=== PATIENT | male | born 1990 | race Caucasian/White ===

== ENCOUNTER 2016-09-17 13:14 | Emergency (ER) | payer SELFPAY ==
[~2016-09-17] VITALS: Ht 170.2 cm; Wt 102.0 kg
[2016-09-17 13:27] VITALS: Ht 170.2 cm; Wt 102.0 kg
[2016-09-17] MEDS ORDERED: LIDOCAINE 2% (MDV) 20 ML INJ INJ ONE (15:30)
--- NOTE | 2016-09-17 16:30 | ERD ---
ER Documentation Chief Complaint Date/Time DATE: 09/17/16 TIME: 16:27 Chief Complaint RIGHT INDEX FINGER LACERATION HPI This is a 26-year-old male presents to the ER with a laceration to his right index finger. Patient was working doing a countertop when he cut his finger. Patient does admit to mild numbness and tingling of the distal portion of the finger. He denies any pain at this time. Bleeding was controlled before remaining to the ER. Patient has a recent tetanus shot. ROS 12 point review of systems was done, all negative except per HPI. Medications Home Meds Active Scripts Ibuprofen* (Motrin*) 600 Mg Tab, 600 MG PO Q6, #30 TAB Prov:TARYN PATTON 09/17/16 PMhx/Soc Medical and Surgical Hx: pt denies Medical Hx, pt denies Surgical Hx Hx Alcohol Use: No Hx Substance Use: No Hx Tobacco Use: No Smoking Status: Never smoker Physical Exam Vitals Vital Signs Date Time Temp Pulse Resp B/P Pulse Ox O2 Delivery O2 Flow Rate FiO2 09/17/16 13:27 98.1 98 18 140/86 97 Physical Exam GENERAL: The patient is well developed and appropriate for usual state of health , in no apparent distress. HEENT: Atraumatic. CHEST: Clear to auscultation bilaterally. There are no rales, wheezes or rhonchi. HEART: Regular rate and rhythm. No murmurs, clicks, rubs or gallops. EXTREMITIES: Right hand: there is a 3cm linear laceration to the right dorsal index finger. DTS and DTP are intact. normal non painful ROM NEURO: Alert and oriented. Results 24 hrs Current Medications Medications (Trade) Dose Ordered Sig/Olga Lidia Route PRN Reason Start Time Stop Time Status Last Admin Dose Admin Lidocaine (Xylocaine 2% (Mdv) 20 ml) 20 ml ONCE ONCE INJ 09/17/16 15:30 09/17/16 15:31 DC 09/17/16 15:33 Procedures/MDM Laceration Repair by me: Anesthesia: 1% lidocaine locally Location: Right dorsal index finger Tendon/Joint/Nerves: No injury Foreign body: None detected after copious irrigation and exploration Technique: 3-0 Ethilon simple Interrupted Sutures Complexity: No subcutaneous sutures/mucosal repair/ edge excision Post Closure Length: 3cm Patient's bleeding was easily controlled in the department and there is no indication of anemia. No evidence of compartment syndrome, neurologic injury, vascular injury, open joint, tendon laceration, or foreign body. Patient is appropriate for outpatient follow up. 48 hour wound check. Scar minimization instructions given. Departure Diagnosis: Primary Impression: Laceration Condition: Stable TARYN PATTON Sep 17, 2016 16:30
--- NOTE | 2016-09-17 16:38 | RADRPT ---
PROCEDURE: XR right Hand. CLINICAL INDICATION: Right hand pain, laceration TECHNIQUE: Three views of the right hand were obtained. COMPARISON: No prior studies are available for comparison. FINDINGS: There is no acute fracture. Joint spaces are preserved. There is no radiopaque foreign body. Soft tissues are grossly unremarkable. IMPRESSION: No radiographic evidence of acute osseous abnormality or radiopaque foreign body. RPTAT: [facility] .Sherwin Ojeda MD, MD Date Time Electronically viewed and signed by .Sherwin Ojeda MD, on 09/17/2016 16:38 .K/
[2016-09-17] MEDS ORDERED: IBUP-1542 PO (17:30)
== END 2016-09-17 18:55 | disposition home or self-care (01) ==
LOC: FTE 13:14
DX: S61.210A Laceration without foreign body of right index finger without damage to nail, initial encounter (principal); W26.8XXA Contact with other sharp object(s), not elsewhere classified, initial encounter; Y92.89 Other specified places as the place of occurrence of the external cause

== ENCOUNTER 2016-09-19 06:57 | Emergency (ER) | payer SELFPAY ==
[~2016-09-19] VITALS: Wt 102.0 kg
[~2016-09-19 06:57] MED LIST: IBUP-1542 PO
[2016-09-19] MEDS ORDERED: CEPH-443 PO (07:20)
--- NOTE | 2016-09-19 12:20 | ERD ---
DATE OF SERVICE: HISTORY OF PRESENT ILLNESS: The patient is a 26-year-old male coming in for a wound check of his ri ght 2nd finger. The patient cut himself on a saw 2 days ago, was seen, and had sutures placed. He has no weakness. He is up to date on his tetanus. He is right hand dominant. Denies any numbness or tingling. Is cleaning site with soap and water. PAST MEDICAL HISTORY: Denies any other medical problems. ALLERGIES: DENIES ALLERGIES TO MEDICATIONS. PAST SURGICAL HISTORY: Denies. SOCIAL HISTORY: Denies. REVIEW OF SYSTEMS: A 12-point review of systems was done. Refer to HPI for positives, all other sy stems negative. PHYSICAL EXAMINATION: VITAL SIGNS: Temperature is 96.5, pulse 94, blood pressure 141/82, respiratory rate 17, O2 saturati on 100% on room air. Pain intensity of 3/10. GENERAL: The patient is well-appearing, well-nourished, no acute distress. HEART: Regular rate and rhythm. No murmurs, clicks, rubs or gallops. No S3 or S4. CHEST: Clear to auscultation bilaterally. There are no rales, wheezes or rhonchi. SKIN: There is a healing wound site noted to the distal aspect of the right 2nd finger over the MCP joint. There is no dehiscence of the wound, no surrounding erythema, no purulence. Sutures intact . EXTREMITIES: The patient has normal flexion/extension of the right 2nd digit and normal strength. He is able to isolate the DIP and PIP joints as well as the MCP. There are no signs of tendon or li gament injury. Cap refill is less than 2 seconds. The patient is neurovascularly intact to the rig ht 2nd finger. EMERGENCY ROOM COURSE: The wound was cleaned. DIAGNOSIS: Wound check. No residual infection. MEDICAL DECISION MAKING: I have low suspicion for tendon or ligament injury, low suspicion for unde rlying infection. I will, however, place the patient on antibiotics, given there is concern for pos sible secondary infection with finger injuries, and I would like to be cautious. Low suspicion for vascular deficit. DISCHARGE: The patient is discharged stable. The patient was told to return in 5 days for a wound check and suture removal. The patient was told if symptoms change or worsen, to return to the ER. All other questions answered at time of discharge. Discharge summary given at the time of departure . The patient understood and complied with plan. Dictated By: CAROLE MENDOZA for JOVANY ZAMORA/ZAKIA Conf#: [id number] DID#: [id number]
== END 2016-09-19 07:47 | disposition home or self-care (01) ==
LOC: FTE 06:57
DX: Z48.01 Encounter for change or removal of surgical wound dressing (principal)
CPT/HCPCS: 99283